=== PATIENT | female | born 1980 | race Native Hawaiian/Other Pacific Islander ===

== ENCOUNTER 2018-02-05 17:17 | Emergency (ER) | payer OTHER ==
[~2018-02-05] VITALS: Ht 160 cm; Wt 93.9 kg
[2018-02-05 17:37] VITALS: BP 151/100; TEMP 98.4
[2018-02-05 20:40] LABS: PLATELET COUNT 344 K/uL (152-353)
[2018-02-05 20:49] LABS: POTASSIUM 3.6 mmol/L (3.6-5.2)
== END 2018-02-05 22:10 | disposition home or self-care (01) ==
LOC: ED 17:17
PROVIDERS: Specialist
DX: R30.0 Dysuria (principal); R10.84 Generalized abdominal pain
CPT/HCPCS: 36415; 80053; 81000; 85027; 87088; 99283

== ENCOUNTER 2019-01-25 09:13 | Outpatient (CLI) | payer OTHER | END 2019-01-25 19:23 | disposition home or self-care (01) | LOC: RESP 09:13 | DX: G56.03 Carpal tunnel syndrome, bilateral upper limbs (principal); G56.23 Lesion of ulnar nerve, bilateral upper limbs | CPT/HCPCS: 95885; 95911 ==

== ENCOUNTER 2020-09-14 11:13 | Outpatient (CLI) | payer OTHER | END 2020-09-14 22:25 | disposition home or self-care (01) | LOC: RAD 11:13 | DX: M54.6 Pain in thoracic spine (principal); M54.5 Low back pain ==